=== PATIENT | male | born 1985 | race Caucasian/White ===

== ENCOUNTER 2020-04-18 08:51 | Emergency (ER) | payer OTHER, SELFPAY ==
--- NOTE | ~2020-04-18 | XR_ITS ---
EXAMINATION: XR lumbar spine min 4V DATE: 04/18/2020 09:29 INDICATION: Low back pain. TECHNIQUE: 5 views of lumbar spine were obtained. COMPARISON: Lumbar spine MRI 01/21/2005 FINDINGS: There is 9 degrees dextrocurvature of thoracolumbar spine. Vertebral body heights are erica l. There is mildly decreased disc height at L1-L2 and L4-L5. There is multilevel mild facet joint ost eoarthritis. IMPRESSION: 1. Mild lumbar spondylosis. Reviewed, dictated and finalized at location A. N SOURER IMPRESSION: 1. Mild lumbar spondylosis.
[2020-04-18 09:00] VITALS: BP 152/107; PULSE 86; RESP 18; TEMP 36.3; O2SAT 98
--- NOTE | 2020-04-18 10:33 | ED.BACK ---
HPI - Back Pain/Injury General Chief Complaint: Back Pain/Injury Stated Complaint: Back Pain Time Seen by Provider: 04/18/20 09:08 Source: patient Mode of arrival: ambulatory Limitations: no limitations History of Present Illness HPI Narrative: 34-year-old with a history of hypertension but not on medication here with complaints of right lower back pain for past 5 days. Patient states that he has 2 daughters constantly lifts them might have injured while lifting them up. He denies any bladder or bowel incontinence. He states that muscles in the lower back are tight. Denies any previous back problems. MD elicited complaint: back pain Timing: constant Severity: moderate Similar Symptoms Previously: No Quality: aching Location: lumbar spine Radiation: none Exacerbating factors: movement Associated symptoms: denies other symptoms Related Data Allergies Allergy/AdvReac Type Severity Reaction Status Date / Time Penicillins Allergy Mild Hives Verified 04/18/20 09:04 amoxicillin Allergy Hives Verified 04/18/20 09:04 Review of Systems Review of Systems: All systems reviewed & are unremarkable except as noted in HPI and below Constitutional: Constitutional: Reports no additional constitutional complaints Eyes: Eyes: Reports no additional eye complaints Cardiovascular: Cardiovascular: Reports no additional cardiovascular complaints Respiratory: Respiratory: Reports no additional respiratory complaints Gastrointestinal: Gastrointestinal: Reports no additional gastrointestinal complaints Musculoskeletal: Musculoskeletal: Reports as per HPI [facility] Family History Family History Father Hypertension Mother Hypertension Social History Social History Smoking status: Never smoker Alcohol intake: current Gender identity (if verbalized by the patient): Male Exam Narrative: Exam Narrative: GENERAL: Well-appearing, obese, and in no acute distress. HEAD: Normocephalic, atraumatic. EYES: PERRLA and EOMI. NECK: Supple. CHEST: Clear to auscultation. No respiratory distress. HEART: Regular rate and rhythm. No murmur heard. Normal peripheral pulses. ABDOMEN: Soft, nontender, nondistended, normal active bowel sounds. EXTREMITIES: Normal range of motion. No edema. Back : No vertebral point tenderness .no CVA tenderness SKIN: Warm, dry, no rash. NEURO: No focal deficits. Alert and oriented x3. PSYCH: Normal mood and affect. Course Course Emergency Course: Inform patient about his x-ray findings. This time appears to be more musculoskeletal origin. Advised him to take pain medication muscle relaxers as prescribed. Also recommended to follow-up with his primary doctor to recheck his blood pressure. Vital Signs Vital signs: Vital Signs Temperature 36.3 C L 04/18/20 09:00 Pulse Rate 86 04/18/20 09:00 Respiratory Rate 18 04/18/20 09:00 Blood Pressure 152/107 H 04/18/20 09:00 Pulse Oximetry 98 04/18/20 09:00 Temperature 36.3 C L 04/18/20 09:00 Pulse Rate 86 04/18/20 09:00 Respiratory Rate 18 04/18/20 09:00 Blood Pressure 152/107 H 04/18/20 09:00 Pulse Oximetry 98 04/18/20 09:00 MDM - Back Pain/Injury MDM Narrative Medical decision making narrative: With a given history of low back pain will obtain x-ray of his lumbar spine. Patient declined any pain medication at this time. Imaging Data Radiologist's impression: ITS Impressions Lumbar Spine X-Ray 04/18/20 09:45 IMPRESSION: 1. Mild lumbar spondylosis. Discharge Plan Discharge Clinical Impression: Strain of lumbar region Qualifiers: Encounter type: initial encounter Qualified Code(s): S39.012A - Strain of muscle, fascia and tendon of lower back, initial encounter Instructions: Acute Low Back Pain (ED) Prescriptions: New cyclobenzaprine 10 mg tablet 10 mg PO TID PRN (Reason: muscle spasm) Qty
[2020-04-18 10:40] VITALS: BP 147/89
== END 2020-04-18 11:07 | disposition home or self-care (01) ==
PROVIDERS: Emergency Provider Family Medicine; PCP Family Medicine
DX: S39.012A Strain of muscle, fascia and tendon of lower back, initial encounter (principal); M47.816 Spondylosis without myelopathy or radiculopathy, lumbar region; I10 Essential (primary) hypertension; X58.XXXA Exposure to other specified factors, initial encounter
CPT/HCPCS: 72110; 99283

== ENCOUNTER 2024-01-04 09:22 | Emergency (ER) | payer BC, SELFPAY ==
[2024-01-04] VITALS (11 sets, daily range): BP systolic 146–169; BP diastolic 96–109; PULSE 75–97; RESP 13–20; TEMP 36.4; O2SAT 95–99
--- NOTE | ~2024-01-04 | XR_ITS ---
EXAMINATION: XR chest 2V DATE: 01/04/2024 09:46 INDICATION: A few days of intermittent mid to left-sided chest pain TECHNIQUE: PA and lateral views of the chest were obtained. COMPARISON: None FINDINGS: The lungs are clear with no focal airspace opacities, pulmonary edema, pleural effusion or pneumothor ax. The cardiomediastinal silhouette is normal. Visualized bones and soft tissues are unremarkable. IMPRESSION: 1. Normal chest radiograph. Reviewed, dictated and finalized at location A. UETTE TEACHER IMPRESSION: 1. Normal chest radiograph.
--- NOTE | 2024-01-04 09:25 | ECG_ITS ---
Test Date: 2024-01-04 09:30:07 Measurements Intervals [place] Rate: 106 P: 46 IN: 132 QRS: 58 QRSD: 92 T: 42 QT: 306 QTc: 407 Interpretive Statements SINUS TACHYCARDIA BASELINE ARTIFACT- I, II, III, AVR, AVL, AVF, V6 ABNORMAL ECG No previous ECG available for comparison Electronically Signed On 01-04-2024 11:48:28 FULL FASHIONED GARMENT KNITTER by Josiah Olea D.O.
[2024-01-04] MEDS: KETOROLAC 15 MG/ML VIAL (*BKC) IV PUSH (09:36)
[2024-01-04 09:43] LABS: Basophils Absolute Auto 0.1 K/mm3 (0.0-0.1); Basophils Percent Auto 0.9 % (0.2-1.2); Eosinophils Percent Auto 0.5 % (0-4.4); Hematocrit 48.6 % (42.0-52.0); Immature Granulocyte Absolute 0.02 K/mm3 (0.00-0.031); Immature Granulocyte Percent A 0.3 % (0-0.5); Lymphocytes Absolute Auto 1.76 K/mm3 (0.9-3.2); Lymphocytes Percent Auto 27.6 % (18.3-44.2); Mean Corpuscular Hemoglobin 30.8 pg (26-34); Mean Platelet Volume 9.9 fl (7.4-10.4); Monocytes Absolute Auto 0.5 K/mm3 (0.1-0.6); Monocytes Percent Auto 7.7 % (2.6-8.5); Platelet Count Result 275 k/mm3 (150-375); Red Blood Count 5.52 M/mm3 (4.6-6.20); Red Cell Distribution Width 12.4 % (11.5-14.5); White Blood Count 6.4 K/mm3 (4.5-10.0)
--- NOTE | 2024-01-04 09:50 | ED.CHESTPAIN ---
HPI - Chest Pain General Chief Complaint: Chest Pain Stated Complaint: chest pain Time Seen by Provider: 01/04/24 09:24 History of Present Illness HPI narrative: 38-year-old male with history of obesity presents to the emergency department for chest pain for the past 5 days. Patient states 5 days ago he tried to hold his sneeze in at work which caused a pain between his scapula in his chest. He states since then he has been having intermittent pain in his chest, pain in his scapula has resolved. states the pain in his chest is diffuse, most notably concentrated on the left sternal border. He describes it as a dull ache. States the pain is better when he massages the area and when he relaxes chest and lays down in his recliner. He cannot identify any aggravating factors. Denies exertional symptoms. He denies cough, shortness of breath, lower extremity edema, hemoptysis, fever, history of VTE. Denies parenteral or sibling history of CAD/CVA. He does not smoke. He does have elevated blood pressure which is been monitored by his PCP. He has been taking his blood pressure readings at home the past few days and has noted that it is been in the 130-140 systolic and 90 - 100s diastolic. He does not take any antihypertensives. He notes his next apt with his PCP is in May he is having to see a new PCP since his current one went on leave. Related Data Home Medications Medication Instructions Recorded Confirmed cetirizine 10 mg chewable tablet 10 mg PO DAILY 07/05/23 07/05/23 (Zyrtec) Allergies Allergy/AdvReac Type Severity Reaction Status Date / Time Penicillins Allergy Mild Hives Verified 01/04/24 09:32 amoxicillin Allergy Hives Verified 01/04/24 09:32 Review of Systems Review of Systems: All systems reviewed & are unremarkable except as noted in HPI and below PMFSH Family History Family History Father Hypertension Mother Hypertension Social History Social History Smoking status: Never smoker Alcohol intake: current Gender identity (if verbalized by the patient): Male Exam Narrative: GENERAL: Well-appearing, well-nourished, and in no acute distress. HEAD: Normocephalic, atraumatic. EYES: EOMI. ENT: Nares clear, no rhinorrhea or epistaxis. Mucous membranes moist. NECK: Supple. CHEST: Clear to auscultation. No respiratory distress. Pain improved with palpation of the left sternal border HEART: Regular rate and rhythm. No murmur heard. Normal peripheral pulses. ABDOMEN: Soft, nontender, nondistended, normal active bowel sounds. EXTREMITIES: Normal range of motion. No edema. negative Homans bilaterally SKIN: Warm, dry, no rash. NEURO: No focal deficits. Alert and oriented x3 Course Vital Signs Vital signs: Vital Signs Temperature 97.5 F L 01/04/24 09:25 Pulse Rate 97 01/04/24 09:25 Respiratory Rate 16 01/04/24 09:25 Blood Pressure 169/105 H 01/04/24 09:25 Pulse Oximetry 99 01/04/24 09:25 Oxygen Delivery Room Air 01/04/24 09:25 Temperature 97.5 F L 01/04/24 09:25 Pulse Rate 75 01/04/24 10:15 Respiratory Rate 18 01/04/24 10:15 Blood Pressure 156/109 H 01/04/24 10:15 Pulse Oximetry 96 01/04/24 10:15 Oxygen Delivery Room Air 01/04/24 09:33 MDM - Chest Pain MDM Narrative Medical decision making narrative: 38-year-old male with history of obesity presents to the emergency department for intermittent chest pain for the past 5 days. Pain is improved with massaging the chest wall. See HPI for further history. Triage vitals with hypertension 169/105. He does have a history of hypertension but is not currently on medications, this is being monitored by his PCP ( Next appointment is May 2024). EKG reveals sinus tachycardia rate of 106, normal WV interval, normal QRS duration, normal QTC, no ischemic changes. Troponin is undetectable. CBC and chemistries are unremarkable. Lipase is normal. Chest x-ray shows no acute cardiopulmonary findings. Patient was updated on workup. He received IV Toradol with improvement. His presentation is very consistent with MSK etiology. Will provide ibuprofen encouraged follow-up with PCP. I did consider PE, however his tachycardia had resolved after he relaxed in the exam bed, he has no risk factors for VTE and his presentation is not consistent with PE. He has been hypertensive in the ED and does provide a BP log he has been taking home with pressures in the 130-140 / 90s-100s. given he is unable to follow up with his PCP until May 2024, will start him on low-dose amlodipine. Encouraged him to continue his blood pressure log and see if he can get in sooner with his PCP. Discussed strict ED return precautions. He and his mother agreeable to plan verbalized understanding. Discharged in stable condition. Lab Data 01/04/24 09:36 01/04/24 09:36 Labs: Lab Results 01/04/24 Range/Units 09:36 WBC 6.4 (4.5-10.0) K/mm3 RBC 5.52 (4.6-6.20) M/mm3 Hgb 17.0 (14.0-18.0) g/dL Hct 48.6 (42.0-52.0) % MCV 88.0 (80-100) fl MCH 30.8 (26-34) pg MCHC 35.0 (32-36) g/dl RDW 12.4 (11.5-14.5) % Plt Count 275 (150-375) k/mm3 MPV 9.9 (7.4-10.4) fl Immature Gran % (Auto) 0.3 (0-0.5) % Neut % (Auto) 63.0 (45.5-73.1) % Lymph % (Auto) 27.6 (18.3-44.2) % [place]roquois % (Auto) 7.7 (2.6-8.5) % Eos % (Auto) 0.5 (0-4.4) % Baso % (Auto) 0.9 (0.2-1.2) % Lymph # (Auto) 1.76 (0.9-3.2) K/mm3 [place]ois # (Auto) 0.5 (0.1-0.6) K/mm3 Eos # (Auto) 0.0 (0-0.3) K/mm3 Baso # (Auto) 0.1 (0.0-0.1) K/mm3 Abs Immat Gran (auto) 0.02 (0.00-0.031) K/mm3 Absolute Neuts (auto) 4.0 (1.3-6.7) K/mm3 Absolute Nucleated RBC 0.000 (0.0-0.012) K/mm3 Nucleated RBC % 0.0 (0.0-0.2) % PT 13.4 (11.1-14.7) Seconds INR 1.0 APTT 27.9 (22.3-36.8) Seconds Sodium 140 (137-145) mmol/L Potassium 4.2 (3.4-5.0) mmol/L Chloride 102 (98-107) mmol/L Carbon Dioxide 27 (22-30) mmol/L Anion Gap 11 (4-12) mmol/L BUN 12 (9-20) mg/dL Creatinine 1.00 (0.7-1.3) mg/dL Estim Creat Clear Calc 144 ml/min Estimated GFR > 60 (59 - ) Glucose 109 (65-110) mg/dL Calcium 9.3 (8.4-10.2) mg/dL Total Bilirubin 1.3 (0.2-1.3) mg/dL AST 35 (17-59) U/L ALT 49 (6-50) U/L Alkaline Phosphatase 69 (38-126) U/L Troponin I < 0.012 (0.000-0.034) ng/mL Total Protein 9.0 H (6.3-8.2) g/dL Albumin 5.1 (3.5-5.1) g/dL Lipase 73 (23-300) U/L Discharge Plan Discharge Clinical Impression: Atypical chest pain Hypertension Qualifiers: Hypertension type: unspecified Qualified Code(s): I10 - Essential (primary) hypertension Patient Disposition: Home, Self-Care Condition: Stable Instructions: Antibiotic Form, Chest Pain (ED), Hypertension (ED) Additional Instructions: Your evaluated in the emergency department for chest pain. Her presentation is consistent with a muscular cause as discussed. Take ibuprofen as needed for pain. Given your elevated blood pressure here and at home, we started you on a blood pressure medicine. Please take this as directed. Eat a well-balanced diet and get exercise. Follow up with her primary care provider. Return to the emergency department if you develop changing or worsening symptoms. Prescriptions: New ibuprofen 800 mg tablet 800 mg PO TID PRN (Reason: pain) Qty: 20 0RF amlodipine 2.5 mg tablet 2.5 mg PO DAILY Qty: 30 1RF No Action cetirizine [Zyrtec] 10 mg tablet,chewable 10 mg PO DAILY Follow-up/Referrals: Maggie Mclaughlin DO [Primary Care Provider] - Quality HEART score for chest pain patients History: slightly suspicious ECG: normal Age: < or = to 45 years Risk factors: 1 or 2 risk factors Troponin: < or = to 1x normal limit Heart score: 1
[2024-01-04 09:52] LABS: Alanine Aminotransferase 49 U/L (6-50); Albumin Level 5.1 g/dL (3.5-5.1); Alkaline Phosphatase 69 U/L (38-126); Anion Gap 11 mmol/L (4-12); Aspartate Amino Transferase 35 U/L (17-59); Bilirubin,Total 1.3 mg/dL (0.2-1.3); Blood Urea Nitrogen 12 mg/dL (9-20); Calcium 9.3 mg/dL (8.4-10.2); Carbon Dioxide 27 mmol/L (22-30); Chloride 102 mmol/L (98-107); Estimated CRCL calculation 144 ml/min; Estimated Glomerular Filt Rate > 60; Glucose 109 mg/dL (65-110); Lipase 73 U/L (23-300); Potassium 4.2 mmol/L (3.4-5.0); Prothrombin Time 13.4 Seconds (11.1-14.7); Sodium 140 mmol/L (137-145)
[2024-01-04 09:53] LABS: Partial Thromboplastin Time 27.9 Seconds (22.3-36.8)
[2024-01-04 10:04] LABS: Troponin I < 0.012 ng/mL (0.000-0.034)
== END 2024-01-04 10:35 | disposition home or self-care (01) ==
PROVIDERS: Emergency Medicine; Emergency Provider Physician Assistant; PCP Family Medicine
DX: R07.89 Other chest pain (principal); I10 Essential (primary) hypertension; E66.9 Obesity, unspecified; Z68.41 Body mass index [BMI] 40.0-44.9, adult; R00.0 Tachycardia, unspecified
CPT/HCPCS: 36415; 71046; 80053; 83690; 84484; 85025; 85610; 85730; 93005; 96374; 99284; J1885

== ENCOUNTER 2024-09-16 14:06 | Outpatient (CLI) | payer BC, SELFPAY ==
--- OUTSIDE RECORDS SUMMARY | 2024-09-16 14:25 | XMS_ITS | Clinical Summary ---
Author Organization [facility] [place] [address] Address [address] [place] [id number] Care Team Providers Care Physiatrist Name Role Phone Unknown, Notinfile Primary Care Provider Unavail able Allergies Active Allergy Reactions Criticality Noted Date Comments Amoxicillin Hives Medium 05/08/2023 Medications cetirizine (ZyrTEC) 10 mg tablet Take 1 tablet (10 mg total) by mouth daily Active predniSONE (DELTASONE) 10 mg tabletIndicatio ns:Hives Take 3 tabs days 1 & 2, 2 tabs days 3 & 4, 1 tab days 5-7. 13 tablet 4 Active triamcinolone (KENALOG) 0.1 % creamIndication s:Hives Apply topically 2 (two) times a day for 7 days Not to face around eyes and not to genitals 80 g 1 4 Active Active Problems No known active problems Social History Tobacco Use Types Packs/Day Years Used Date Smoking Tobacco: Never Assessed Sex and Gender Information Value Date Recorded Sex Assigned at Not on file Legal Sex Male 10:27 AM CDT Gender Identity Male 05/08/2023 10:34 AM CDT Sexual Orientation Straight 05/08/2023 10 :34 AM CDT Obstetrics History Last Filed Vital Signs Vital Sign Reading Time Taken Comments Blood Pressure 156/97 05/08/2023 6:22 PM CDT Pulse 89 05/08/2023 6:22 PM CDT Temperature 36.8 C (98.3 F) 05/08/2023 6:22 PM CDT Respiratory Rate 18 05/08/2023 6:22 PM CDT Oxygen Saturation 99% 05/08/2023 6:22 PM CDT Inhaled Oxygen Concentration - - Weight 166.5 kg (367 lb) 05/08/2023 6:22 PM CDT Height 190.5 cm (6' 3) 05/08/2023 6:22 PM CDT Body Mass Index 45.87 05/08/2023 6:22 PM CDT Plan of Treatment Health Maintenance Due Date Last Done Comments Depression Screening 1985 Hepatitis C Screening 1985 Varicella Vaccines (1 of 2 - 13+ 2-dose series) 1998 Hepatitis B Screening 08/29/2003 Regular Well Visit/Exam 18-64 08/29/2003 HPV Vaccines (1 - 3-dose SCD M series) 2012 Covid-19 Vaccine (4 - 2023-2 5 season) 2023 12/11/2020, 05/07/2020, 04/02/2020 DTaP/Tdap/Td Vaccine (2 - Td or Tdap) 08/07/2024 08/07/2014 Influenza Vaccine (#1) 2024 3, 10/28/2020, 11/12/2019 Pneumococcal vaccine <65 Aged Out No longer eligible based on patient's age to complete this topic Insurance Care Teams Physiatrist Relationship Specialty Start Date End Date Unknown, Notinfile PCP - General 05/08/23
--- OUTSIDE RECORDS SUMMARY | 2024-09-16 14:25 | XMS_ITS | Clinical Summary ---
Author Organization [facility] Address [address] [place] [id number] Care Team Providers Care Coiled Coil Inspector Name Role Phone Newton Vega MD Primary Care Provider [phone] Allergies Active Allergy Reactions Criticality Noted Date Comments Amoxicillin Hives High 10/19/2021 Medications cetirizine (ZyrTEC) 10 mg tablet Take 10 mg by mouth daily. Active pseudoephedrine (SUDAFED) 30 mg tablet Take 60 mg by mouth every 4 hours as needed for Congestion. Active ibuprofen (MOTRIN) 200 mg tablet Take 200 mg by mouth every 6 hours as needed for Pain, Mild. 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 Gender Identity Not on file Sexual Orientation Not on file Last Filed Vital Signs Vital Sign Reading Time Taken Comments Blood Pressure 144/98 05/30/2023 10:32 AM CDT Pulse 102 05/30/2023 10:32 AM CDT Temperature 36.9 C (98.5 F) 05/30/2023 10:32 AM CDT Respiratory Rate - - Oxygen Saturation 97% 05/30/2023 10:32 AM CDT Inhaled Oxygen Concentration - - Weight 167.6 kg (369 lb 7 oz) 05/30/2023 10:32 A M CDT Height 190.5 cm (6' 3) 05/30/2023 10:32 AM CDT Body Mass Index 46.18 05/30/2023 10:32 AM CDT Plan of Treatment Health Maintenance Due Date Last Done Comments HPV VACCINES (1 - Male 3-dos e series) 2000 DTAP/TDAP/TD VACCINES (1 - Tdap) 2004 HEPATITIS B VACCINES (1 of 3 - 19+ 3-dose series) 2004 INFLUENZA VACCINE (#1) 2024 , 10/28/2020, 11/12/[address] [facility] [employer]/TRUE BLUE PPO [facility] [employer]/TRUE BLUE PPO Care Teams Coiled Coil Inspector Relationship Specialty Start Date End Date Newton Vega MD [address] [facility] [address] [facility] [place] [address] PCP - General Family Practice 05/30/23
--- OUTSIDE RECORDS SUMMARY | 2024-09-16 14:25 | XMS_ITS | Patient Health Record ---
Author Organization [facility] Address [address] [facility] [place] [place] [facility] [address] [place] [address] Care Team Providers Care Documentum Consultant Name Role Phone Jonny Murphy Primary Care Provider Reason For Referral No Information Immunizations Vaccine Route Administration Date Status Comme nts Influenza Vaccine (Flucelvax) IM Intramuscular 11/30/2023 Administered Encounters Encounter Location Date Provider Diagnosis [facility] [place] [address] [address] 11/30/2023 Jonny Murphy Influenza vaccine needed Z23 Assessments Encounter Date Diagnosis (ICD Code) Assessment Notes Treatment Notes Treatment Clinical Notes Section Notes 11/30/2023 Influenza vaccine needed (ICD-10 - Z23) Plan Of Treatment No Information Insurance Providers Payer Name Payer Address Payer Phone Subscriber Number Group Number Insured Name Patient Relationship to Insured Coverage Start Date Coverage End Date [employer] - [employer] [address] [place] [phone] [id number] Lito Link Self - patient is the insured 4 [employer] - [employer] [address] [place] [address] [id number] Lito Link Self - patient is the insured 4 4
--- NOTE | 2024-09-27 12:16 | WPDHOLTEREM ---
Holter/Event Monitor Holter/Event Monitor Date of procedure: 09/16/24 Holter/Event Procedure: 3-7 Day Holter Monitor Indications: Cardiac arrhythmias Conclusion: 1. 5 days holter monitor on 09/16/24. 2. Predominant rhythm is sinus rhythm. HR range 45-185 bpm; average HR 79 bpm. HR at 45 bpm was on 09/18/24 at 2:42 am. 3. There are rare premature supraventricular complexes, rare supraventricular couplets, and rare supraventricular triplets. There is 1 episode of supraventricular tachycardia at 169 bpm lasting 5 beats. 4. There are rare premature ventricular complexes. There is 1 episode of ventricular tachycardia at 185 bpm lasting 4 beats. 5. No significant pauses greater than 3 seconds. 6. Patient reports 3 episodes of symptoms of irregular beats which demonstrate sinus rhythm, HR range 71-87 bpm with 2 episodes with PVC's.
== END 2024-09-16 14:07 | disposition home or self-care (01) ==
PROVIDERS: PCP Nurse Practitioner; Visit Provider Nurse Practitioner
DX: I49.8 Other specified cardiac arrhythmias (principal)
CPT/HCPCS: 93242

== ENCOUNTER 2025-01-08 08:34 | Outpatient (CLI) | payer BC, SELFPAY ==
--- OUTSIDE RECORDS SUMMARY | 2025-01-08 09:01 | XMS_ITS | Clinical Summary ---
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 Gender Identity Not on file Sexual Orientation [...] Health Maintenance Due Date Last Done Comments DTAP/TDAP/TD VACCINES (1 - Tdap) 2004 HEPATITIS B VACCINES (1 of 3 - 19+ 3-dose series) 2004 HPV VACCINES (1 - 3-dose SCD M series) 2012 INFLUENZA VACCINE (#1) 2024 , 10/28/2020, 11/12/2019 Insurance [address] [place] [id number] [facility] BLUE [employer]/TRUE BLUE PPO Care Teams Project Management Manager Relationship Specialty Start Date End Date Newton Vega MD [facility] [place] [id number] PCP - General Family Practice 05/30/23
--- OUTSIDE RECORDS SUMMARY | 2025-01-08 09:01 | XMS_ITS | Clinical Summary ---
Author Organization [facility] [address] Address [address] [place] [phone] Care Team Providers Care Irrigation Supervisor Name Role Phone Unknown, Notinfile Primary Care [...] Orientation Straight 05/08/2023 10 :34 AM CDT Last Filed Vital Signs Vital Sign Reading [...] (1 - 3-dose SCD M series) 2012 DTaP/Tdap/Td Vaccine (2 - Td or Tdap) 08/07/2024 08/07/2014 Covid-19 Vaccine (4 - 2024-2 6 season) 2024 12/11/2020, 05/07/2020, 04/02/2020 Influenza Vaccine (#1) 2024 3, 10/28/2020, 11/12/2019 Pneumococcal vaccine <65 Aged Out No longer eligible based on patient's age to complete this topic Insurance [facility] [employer] [place] [id number] [employer] ACCESS Care Teams Irrigation Supervisor Relationship Specialty Start Date End Date Unknown, Notinfile PCP - General 05/08/23
--- NOTE | 2025-01-15 20:52 | WPDHOMESLEEP ---
Sleep Study - Home Unattended Date of Study: 01/08/25 Ordering Provider: RISHI Guardado Interpreting Provider: Arianna Guzmán MD Home Sleep Study Type: Watch PAT Height: 1.91 m Weight: 163.293 kg Body Mass Index: 45.0 Neck Circumference (inches): 19 [place]: 6 Reason for Sleep Study Non restorative sleep, loud snoring Sleep History Lito Link is a 39-year-old male who has loud snoring, according to his . He has poor quality sleep, sometimes staying up to watch television sports. He wakes with at most once at night to urinate, is able to return to sleep easily. He has hypertension, has been on amlodipine for a year. Earlier this year he was having palpitations and miss some doses of amlodipine. His palpitations subsided when taking amlodipine more regularly. He does not feel anxious about his sleep. He does not have problems kicking at night, does not have uncomfortable feelings in his legs at night and is not concerned about any leg issues. He does not clench or grind his teeth. He is fatigued in the day and feels tired when waking. He does not have an urge to fall asleep during the day and he denies drowsy driving. He does not act out his dreams. He does not have sleepwalking. He has an immediate family relative with restless legs syndrome. Bedtime is around 10-10 30, taking 15 to 30 minutes to fall asleep, waking around 5: 30-6:45 a.m.. On weekends he goes to bed at 11:00 p.m. falls asleep within 15 minutes spending 8-1/2 hours in bed, 8 hours and 15 minutes the sleep. His sleep is a little more restorative on days off. He does not take planned naps. He is tired in the afternoon. On work days, he takes a bus over to [place] to work, and sometimes he dozes off on the bus ride to and from work. He has never smoked, he does not vape. He uses alcohol socially, 1-2 beverages per week. He does not drink caffeinated beverages. Does not work rotating shifts. No marijuana or other recreational substance. [facility] Past Medical History Medical History (Updated 01/15/25 @ 21:12 by Arianna Guzmán MD) Essential hypertension Family History Family History Father Hypertension Mother Hypertension Social History Social History Smoking status: Never smoker Alcohol intake: current Substance use: never Substance use type: does not use Living arrangements: with family Occupation/Education: occupation Gender identity (if verbalized by the patient): Male Agree to blood products: Yes Medications Home Medications ?Medication ?Instructions ?Recorded ?Confirmed ?Type cetirizine 10 mg chewable tablet 10 mg PO DAILY 07/05/23 12/04/24 History (Zyrtec) amlodipine 5 mg tablet 5 mg PO DAILY #90 tabs 08/23/24 12/04/24 Rx Sleep Procedure The sleep study was completed using [employer]T a technically adequate device with seven channels: peripheral arterial tone, actigraphy, body position, snore, respiratory movement, pulse oximetry, sleep staging, and heart rate. Prior to using the device, the patient received verbal and written instructions for its application and was provided with the help desk phone number for additional telephonic instruction with 24-hour availability of qualified personnel to answer questions. Sleep Architecture The total recording time is 7 hrs, 11 min. The total sleep time is 6 hrs, 9 min. Sleep latency is 19 minutes. REM latency is 53 minutes. The patient had 11 episodes of waking. Sleep architecture shows 4.9% deep sleep, 82.8% light sleep, and 12.3% stage REM. The patient spent 24.7% of total sleep time in the supine position. Sleep efficiency was 86%. Respiratory Analysis The overall AHI (pAHI 3%:) is 77.7. The central AHI is 0.8. The AHI was 82.5 in NREM and 43.9 in REM sleep. The AHI was 84.4 in Supine and 75.6 in Non-supine sleep. Percent of Dayron Benton respirations is 0%. Oximetry Data The oxygen desaturation index (NICHOLAS 4%:) is 50.7. The mean saturation is 94%, and the lowest saturation is 86%. Time spent with saturation < 88% is 1.1 minutes. Snoring Profile Snoring average intensity is 54 dB. The patient snored above 45 decibels for 285.2 minutes, 77.2% of sleep time. Cardiac Profile The average pulse rate is 66 beats per minutes. The lowest pulse rate is 45 bpm. The highest pulse rate is 109 bpm. Cardiac rhythm analysis in sleep does not show atrial fibrillation. Assessment and Plan Assessment and Plan (1) Obstructive sleep apnea: Code(s): G47.33 - Obstructive sleep apnea (adult) (pediatric) Status: Acute Assessment and Plan: This home sleep test using WatchPat on 01/08/2025 shows extremely severe obstructive sleep apnea, the apnea-hypopnea index with 3% criteria is 77.7, desaturation 86%, 1.1 minute spent below 88% with loud persistent snoring. There is no significant central sleep apnea. Events were worse in the supine position. Supine AHI is 84.4. This patient has severe obstructive sleep apnea and the such should have a CPAP titration in the sleep lab with a sleep aid available to get to sleep and stay asleep during the study. Consider Ambien 5-10 mg or Lunesta 2-3 mg. BMI is 45. Weight management is advised. Clinical data suggests that weight loss of 10% can reduce the severity of respiratory events and snoring and improve AHI by as much as 25%. Data The data obtained during this sleep study is adequate for interpretation. Certification This sleep study has been reviewed by a board certified sleep medicine physician.
[2025-01-15 21:14] VITALS: BMI 45.0
== END 2025-01-09 12:31 | disposition home or self-care (01) ==
PROVIDERS: PCP Nurse Practitioner; Visit Provider Physician Assistant
DX: G47.33 Obstructive sleep apnea (adult) (pediatric) (principal)
CPT/HCPCS: 95800